=== PATIENT | male | born 1985 | race Caucasian/White ===

== ENCOUNTER 2021-01-25 10:31 | Emergency (ER) | payer OTHER ==
[2021-01-25] MEDS ORDERED: NA CHLORIDE 0.9% 1,000 ML ONE (11:35)
--- OUTSIDE RECORDS SUMMARY | 2021-01-25 11:48 | XMS REPORT | Continuity of Care Document ---
:1985 Author Organization [facility] t Address [address] Lopez [address] [place] [id number] Care Team Providers Name Role Phone Unavailable Unavailable Unavailable Problems This patient has no known problems. Allergies, Adverse Reactions, Alerts This patient has no known allergies or adverse reactions. Medications This patient has no known medications. Procedures This patient has no known procedures. Results This patient has no known results.
[2021-01-25 12:09] LABS: Absolute Lymphocytes (CBC) 0.4 K/uL (0.7-4.9); Basophils % 0.1 % (0-1.3); Hematocrit 46.5 % (39.6-49.0); Lymphocytes % 6.5 % (15.3-44.8); MPV 8.3 fL (7.6-11.3); RBC Red Blood Cell Count 5.21 M/uL (4.33-5.43)
[2021-01-25 12:13] LABS: Protime INR 1.3
[2021-01-25 12:34] LABS: ALT/SGPT 61 U/L (12-78); AST/SGOT 54 U/L (15-37); Albumin 4.6 g/dL (3.4-5.0); Alkaline Phosphatase 94 U/L (45-117); BUN Blood Urea Nitrogen 20 mg/dL (7-18); Bicarbonate 24 mmol/L (21-32); Bilirubin Direct 0.2 mg/dL (0-0.2); Bilirubin Total 0.9 mg/dL (0.2-1.0); Glucose Level 97 mg/dL (74-106); Potassium 4.5 mmol/L (3.5-5.1); Protein, Total 8.5 g/dL (6.4-8.2); Sodium Level 138 mmol/L (136-145)
--- NOTE | 2021-01-25 13:22 | ER ---
Nurse's Notes [facility] Name: Que Hester Age: 35 yrs Sex: Male : 1985 Arrival Date: 01/25/2021 Time: 10:37 Bed 17 Private MD: Diagnosis: Schizophrenia, unspecified Presentation: 01/25 10:39 Chief complaint: EMS states: FOUND DOWN BY PARENTS, DECREASED LOC VS NORMAL. UNCERTAIN bp COMPLIANCE WITH PSYCH MEDS. Coronavirus screen: At this time, the client does not indicate any symptoms associated with coronavirus-19. Ebola Screen: No symptoms or risks identified at this time. Initial Sepsis Screen: Does the patient meet any 2 criteria? HR > 90 bpm. No. Patient's initial sepsis screen is negative. Does the patient have a suspected source of infection? No. Patient's initial sepsis screen is negative. Risk Assessment: Do you want to hurt yourself or someone else? Unable to obtain. Onset of symptoms is unknown. Care prior to arrival: Medication(s) given: 5 MG VERSED IV initiated. 20 GA, in the left antecubital area. 10:39 Method Of Arrival: EMS: [facility] bp 10:39 Acuity: DONN 2 bp Triage Assessment: 10:43 General: Appears in no apparent distress. comfortable, unkempt, Behavior is bp uncooperative. Pain: Unable to use pain scale. Does not appear to understand pain scale. EENT: No deficits noted. Neuro: Level of Consciousness is awake, Oriented to none. Cardiovascular: No deficits noted. Respiratory: No deficits noted. GI: No signs and/or symptoms were reported involving the gastrointestinal system. : No signs and/or symptoms were reported regarding the genitourinary system. Derm: No deficits noted. Musculoskeletal: No deficits noted. Historical: - Allergies: 10:43 No Known Allergies; bp - Home Meds: 10:43 Unable to obtain [Active]; bp - PMHx: 10:43 Schizophrenia; bp - Immunization history:: Adult Immunizations unknown. - Social history:: Smoking status: Patient denies any tobacco usage or history of. - Family history:: not pertinent. Screenin:45 Abuse screen: Denies threats or abuse. Denies injuries from another. Nutritional bp screening: No deficits noted. Tuberculosis screening: No symptoms or risk factors identified. Fall Risk None identified. Assessment: 10:45 General: SEE TRIAGE NOTE. bp 10:51 Reassessment: Pt stated did not take medication last night, Seroquel 400 mg. Pain: vg1 Denies pain. Neuro: Level of Consciousness is awake, alert, obeys commands, Oriented to person, place, time, situation. Cardiovascular: Patient's skin is warm and dry. Respiratory: Airway Respiratory effort is even, unlabored. GI: No signs and/or symptoms were reported involving the gastrointestinal system. : No signs and/or symptoms were reported regarding the genitourinary system. EENT: No signs and/or symptoms were reported regarding the EENT system. Derm: Skin is intact, is healthy with good turgor. Musculoskeletal: Circulation, motion, and sensation intact. 11:26 Reassessment: Pt denies SI. vg1 14:15 Reassessment: Patient appears in no apparent distress at this time. No changes from vg1 previously documented assessment. Patient and/or family updated on plan of care and expected duration. Pain level reassessed. Patient is alert, oriented x 3, equal unlabored respirations, skin warm/dry/pink. Vital Signs: 10:39 BP 130 / 80; Pulse 90; Resp 16; Temp 98; Pulse Ox 100% ; bp 11:30 BP 136 / 87; Pulse 92; Resp 14; Pulse Ox 99% on R/A; vg1 ED Course: 10:37 Patient arrived in ED. vg1 10:43 Triage completed. bp 10:43 Arm band placed on. bp 10:45 Patient has correct armband on for positive identification. Bed in low position. Call bp light in reach. Side rails up X2. Adult w/ patient. 10:45 Maintain EMS IV. Dressing intact. Good blood return noted. Site clean \T\ dry. Gauge \T\ bp site: 20 GAUGE LEFT AC. 10:47 Blanquita Palomino, JORDAN is Primary Nurse. vg1 10:56 Naresh Scott MD is Attending Physician. dennis 11:26 Initial lab(s) drawn, by me, sent to lab. vg1 12:21 CT Head Brain wo Cont In Process Unspecified. EDMS 13:22 Herminio Rios MD is Referral Physician. dennis 14:15 No provider procedures requiring assistance completed. IV discontinued, intact, vg1 bleeding controlled, No redness/swelling at site. Pressure dressing applied. Administered Medications: : Drug: NS 0.9% 1000 ml Route: IV; Rate: 1 bolus; Site: left antecubital; vg1 14:15 Follow up: IV Status: Completed infusion; IV Intake: 500ml vg1 Intake: 14:15 IV: 500ml; Total: 500ml. vg1 Outcome: 13:22 Discharge ordered by MD. collins 14:15 Discharged to home ambulatory, with family. vg1 14:15 Condition: stable 14:15 Discharge instructions given to patient, family, Instructed on discharge instructions, follow up and referral plans. Demonstrated understanding of instructions, follow-up care. 14:16 Patient left the ED. vg1 Signatures: Dispatcher [employer] EDNaresh Cook MD MD cha Peltier, Brian, RN RN Blanquita Bah RN RN vg1
--- NOTE | 2021-01-25 13:22 | EDPHYS ---
Physician Documentation [facility] Name: Que Hester Age: 35 yrs Sex: Male : 1985 Arrival Date: 01/25/2021 Time: 10:37 Bed 17 Private MD: ED Physician Naresh Scott HPI: 01/25 12:23 This 35 yrs old Male presents to ER via EMS with complaints of Altered Mental dennis Status. 12:23 The patient presents with trouble concentrating. Onset: The symptoms/episode dennis began/occurred just prior to arrival, this morning. Possible causes: unknown. Associated signs and symptoms: The patient has no apparent associated signs or symptoms. Current symptoms: In the emergency department the patient's symptoms have improved, moderately. Patient's baseline: Neuro: alert and fully oriented. Historical: - Allergies: 10:43 No Known Allergies; bp - Home Meds: :43 Unable to obtain [Active]; bp - PMHx: 10:43 Schizophrenia; bp - Immunization history:: Adult Immunizations unknown. - Social history:: Smoking status: Patient denies any tobacco usage or history of. - Family history:: not pertinent. ROS: 12:23 Constitutional: Negative for fever, chills, and weight loss, Eyes: Negative for injury, dennis pain, redness, and discharge, ENT: Negative for injury, pain, and discharge, Neck: Negative for injury, pain, and swelling, Cardiovascular: Negative for chest pain, palpitations, and edema, Respiratory: Negative for shortness of breath, cough, wheezing, and pleuritic chest pain, Abdomen/GI: Negative for abdominal pain, nausea, vomiting, diarrhea, and constipation, Back: Negative for injury and pain, : Negative for injury, bleeding, discharge, and swelling, MS/Extremity: Negative for injury and deformity, Skin: Negative for injury, rash, and discoloration, Neuro: Negative for headache, weakness, numbness, tingling, and seizure, Allergy/Immunology: Negative for hives, rash, and allergies, Endocrine: Negative for neck swelling, polydipsia, polyuria, polyphagia, and marked weight changes, Hematologic/Lymphatic: Negative for swollen nodes, abnormal bleeding, and unusual bruising. 12:23 Psych: Positive for depression. Exam: 12:23 Constitutional: This is a well developed, well nourished patient who is awake, alert, dennis and in no acute distress. Head/Face: Normocephalic, atraumatic. Eyes: Pupils equal round and reactive to light, extra-ocular motions intact. Lids and lashes normal. Conjunctiva and sclera are non-icteric and not injected. Cornea within normal limits. Periorbital areas with no swelling, redness, or edema. ENT: Nares patent. No nasal discharge, no septal abnormalities noted. Tympanic membranes are normal and external auditory canals are clear. Oropharynx with no redness, swelling, or masses, exudates, or evidence of obstruction, uvula midline. Mucous membranes moist. Neck: Trachea midline, no thyromegaly or masses palpated, and no cervical lymphadenopathy. Supple, full range of motion without nuchal rigidity, or vertebral point tenderness. No Meningismus. Chest/axilla: Normal chest wall appearance and motion. Nontender with no deformity. No lesions are appreciated. Cardiovascular: Regular rate and rhythm with a normal S1 and S2. No gallops, murmurs, or rubs. Normal PMI, no JVD. No pulse deficits. Respiratory: Lungs have equal breath sounds bilaterally, clear to auscultation and percussion. No rales, rhonchi or wheezes noted. No increased work of breathing, no retractions or nasal flaring. Abdomen/GI: Soft, non-tender, with normal bowel sounds. No distension or tympany. No guarding or rebound. No evidence of tenderness throughout. Back: No spinal tenderness. No costovertebral tenderness. Full range of motion. Male : Normal genitalia with no discharge or lesions. Skin: Warm, dry with normal turgor. Normal color with no rashes, no lesions, and no evidence of cellulitis. MS/ Extremity: Pulses equal, no cyanosis. Neurovascular intact. Full, normal range of motion. Neuro: Awake and alert, GCS 15, oriented to person, place, time, and situation. Cranial nerves II-XII grossly intact. Motor strength 5/5 in all extremities. Sensory grossly intact. Cerebellar exam normal. Normal gait. Psych: Awake, alert, with orientation to person, place and time. Behavior, mood, and affect are within normal limits. 12:48 ECG was reviewed by the Attending Physician. [facility] Vital Signs: 10:39 BP 130 / 80; Pulse 90; Resp 16; Temp 98; Pulse Ox 100% ; bp 11:30 BP 136 / 87; Pulse 92; Resp 14; Pulse Ox 99% on R/A; vg1 MDM: 10:56 Patient medically screened. [facility] 12:25 Differential Diagnosis: CVA, electrolyte abnormality, alcohol intoxication, dennis hypoglycemia, overdose, volume depletion. Data reviewed: vital signs, nurses notes, lab test result(s), EKG, radiologic studies, CT scan. 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 Test interpretation: by ED physician or midlevel provider: ECG, plain radiologic studies. Counseling: I had a detailed discussion with the patient and/or guardian regarding: the historical points, exam findings, and any diagnostic results supporting the discharge/admit diagnosis, lab results, radiology results. 01/25 10:58 Order name: Acetaminophen [facility] 01/25 10:58 Order name: Basic Metabolic Panel [facility] 01/25 10:58 Order name: CBC with Diff [facility] 01/25 10:58 Order name: ETOH Level; Complete Time: 12:25 [facility] 01/25 10:58 Order name: Hepatic Function; Complete Time: 13:22 [facility] 01/25 10:58 Order name: PT-INR; Complete Time: 12:25 [facility] 01/25 10:58 Order name: Ptt, Activated; Complete Time: 12:25 [facility] 01/25 10:58 Order name: Salicylate; Complete Time: 12:25 [facility] 01/25 10:58 Order name: Acetaminophen Level; Complete Time: 13:22 EDME 01/25 10:58 Order name: Basic Metabolic Panel; Complete Time: 13:22 EDME 01/25 10:58 Order name: CBC with Automated Diff; Complete Time: 12:25 EDME 01/25 12:00 Order name: CT Head Brain wo Cont 01/25 10:58 Order name: EKG; Complete Time: 10:59 [facility] 01/25 10:58 Order name: EKG - Nurse/Tech; Complete Time: 11:26 [facility] 01/25 10:58 Order name: IV Saline Lock; Complete Time: 11:26 [facility] 01/25 10:58 Order name: Labs collected and sent; Complete Time: 11:26 [facility] 01/25 10:58 Order name: Suicide Screening ([place]); Complete Time: 11: [facility] 01/25 10:59 Order name: Seizure Precautions; Complete Time: :08 dennis EC:48 Rate is 89 beats/min. Rhythm is regular. QRS [place] is Normal. MA interval is normal. QRS dennis interval is normal. QT interval is normal. No Q waves. T waves are Normal. No ST changes noted. Clinical impression: Normal ECG and No evidence of ischemia. Interpreted by me. Reviewed by me. Administered Medications: 11:26 Drug: NS 0.9% 1000 ml Route: IV; Rate: 1 bolus; Site: left antecubital; vg1 14:15 Follow up: IV Status: Completed infusion; IV Intake: 500ml vg1 Disposition Summary: 01/25/21 13:22 Discharge Ordered Location: Home dennis Problem: new dennis Symptoms: have improved dennis Condition: Stable dennis Diagnosis - Schizophrenia, unspecified dennis Followup: dennis - With: Private Physician - When: 2 - 3 days - Reason: Recheck today's complaints, Continuance of care, Re-evaluation by your physician Followup: dennis - With: - When: 2 - 3 days - Reason: Recheck today's complaints, Continuance of care, Re-evaluation by your physician Discharge Instructions: - Discharge Summary Sheet dennis - Schizophrenia dennis - Supporting Someone With Schizophrenia dennis - Managing Schizophrenia dennis Forms: - Medication Reconciliation Form dennis - Thank You Letter dennis - Antibiotic Education dennis - Prescription Opioid Use dennis Signatures: Dispatcher [employer] Naresh Sterling MD MD cha Peltier, Brian, RN RN Blanquita Bah RN RN vg1
[2021-01-25 14:21] VITALS: TEMP 98
[2021-01-25 14:23] VITALS: BP 136/87; O2SAT 99
--- NOTE | 2021-01-25 15:02 | RAD REPORT ---
EXAM DESCRIPTION: CT - Head Brain Wo Cont - 01/25/2021 12:21 pm CLINICAL HISTORY: Unresponsive COMPARISON: None. TECHNIQUE: Axial 5 mm thick images of the head were obtained without IV contrast. All CT scans are performed using dose optimization technique as appropriate and may include automated exposure control or mA/KV adjustment according to patient size. FINDINGS: No intracranial hemorrhage, mass, edema or shift of mid-line structures. No acute infarcti on changes seen. No abnormal extra-axial fluid collections. Mastoid air cells and visualized portions of the paranasal sinuses are clear. No acute bony findings. IMPRESSION: No acute intracranial abnormality.
--- NOTE | 2021-01-26 16:14 | EKG ---
Test Date: 2021-01-25 Test Time: 11:18:19 Materials Intern: RONAK MEASUREMENT RESULTS: Intervals: Rate: 89 LA: 120 QRSD: 90 QT: 348 QTc: 423 [place]: P: 17 LA: 120 QRS: 67 T: 41 INTERPRETIVE STATEMENTS: Normal sinus rhythm Normal ECG Compared to ECG 08/05/2011 17:02:30 Sinus tachycardia no longer present ST (T wave) deviation no longer present Electronically Signed On 01-26-21 16:08:57 CDT by Avi Chaevs
== END 2021-01-25 14:16 | disposition home or self-care (01) ==
LOC: ER 10:31
DX: F20.9 Schizophrenia, unspecified (principal)
CPT/HCPCS: 96361; 93005; 85025; 80048; 36415; 80320; 80329 ×2; 85610; 80076; 85730; 70450; 96360; 99284; J7030

== ENCOUNTER 2021-01-27 11:27 | Emergency (ER) | payer OTHER ==
--- NOTE | 2021-01-27 12:26 | ER ---
Nurse's Notes [facility] Name: Que Hester Age: 35 yrs Sex: Male : 1985 Arrival Date: 01/27/2021 Time: 11:28 Bed 16 Private MD: Diagnosis: Presentation: 01/27 11:29 Chief complaint: EMS states: family and the patient wanted to come here because he tw2 wasn't compliant with his medications because he started seeing a new doctor. the family did report he took his medicine this morning. we called [facility] and they are on the way to evaluate the patient. stated there was no deputy available at the time to check on pt. Coronavirus screen: At this time, the client does not indicate any symptoms associated with coronavirus-19. Ebola Screen: Patient denies travel to an Ebola-affected area in the 21 days before illness onset. Initial Sepsis Screen: Does the patient meet any 2 criteria? No. Patient's initial sepsis screen is negative. Does the patient have a suspected source of infection? No. Patient's initial sepsis screen is negative. Risk Assessment: Do you want to hurt yourself or someone else? Patient reports no desire to harm self or others. Note pt refusing to wait in exam room at this time. [facility] talking to pt at this time. Onset of symptoms was January 27, 2021. 11:29 Method Of Arrival: EMS: [facility] tw2 11:29 Acuity: DONN 2 tw2 11:50 Note pt standing in hallway with JOANA, charge nurse JORDAN Morley and [facility]. pts father tw2 just arrived in hallway to talk to pt at this time. pt still unwilling to go into ER examination room. Assessment: 11:33 Reassessment: pt walking out of ER at this time. tw2 11:35 Reassessment: pt refusing to be exam room, vs, and is walking out to leave the ER. tw2 [facility] talking to pt. security notified. 12:12 Reassessment: pt standing in hallway, refusing to sit in exam room and refusing blood tw2 work at this time, pts father unable to get pt into the exam room at this time. security at bedside at this time. 12:24 Reassessment: pts father left with pt at this time. tw2 ED Course: 11:28 Patient arrived in ED. tw2 11:33 Triage completed. tw2 11:47 Monster Barreto PA is PHCP. [facility] 11:48 Oscar Jasso MD is Attending Physician. [facility] 12:12 Ani Trevizo, RN is Primary Nurse. tw2 Administered Medications: No medications were administered Outcome: 12:25 Patient left the ED. tw2 Signatures: Monster Barreto PA PA [facility] Ani Trevizo, RN RN tw2
--- OUTSIDE RECORDS SUMMARY | 2021-01-27 15:27 | XMS REPORT | Continuity of Care Document ---
:1985 Author Organization [facility] t Address [address] [place] [address] Dr. Lopez [address] [place] [id number] Care Team Providers Name Role Phone Unavailable Unavailable Unavailable Problems This patient has no known problems. Allergies, Adverse Reactions, Alerts This patient has no known allergies or adverse reactions. Medications This patient has no known medications. Procedures This patient has no known procedures. Results This patient has no known results.
--- NOTE | 2021-01-28 12:25 | EDPHYS ---
Physician Documentation [facility] Name: Que Hester Age: 35 yrs Sex: Male : 1985 Arrival Date: 01/27/2021 Time: 11:28 Bed 16 Private MD: ED Physician Oscar Jasso HPI: 01/27 12:02 This 35 yrs old Male presents to ER via EMS with complaints of Mental Health [facility] Checkup. 12:02 This is a 35 year old male with a history of schizophrenia that presents to the ED in a [facility] non verbal state since d/c his medications. Father states the patient is normally verbal and communicates normally. Patient arrived via ems. . ROS: 12:02 Unable to obtain ROS due to patient being uncooperative. [facility] Exam: 12:02 Head/Face: atraumatic. Eyes: EOMI, no conjunctival erythema appreciated ENT: Moist [facility] Mucus Membranes Neck: Trachea midline, Supple Chest/axilla: Normal chest wall appearance and motion. Cardiovascular: Regular rate and rhythm. No edema appreciated Respiratory: Normal respirations, no respiratory distress appreciated Abdomen/GI: Non distended, soft Back: Normal ROM Skin: General appearance color normal 12:02 Constitutional: The patient appears awake. 12:02 Musculoskeletal/extremity: ROM: intact in all extremities. 12:02 Skin: Appearance: Color: normal in color. 12:02 Psych: Behavior/mood is uncooperative. MDM: 12:02 Patient medically screened. [facility] 12:02 Data reviewed:. ED course: patient eloped from the ED with father. [facility] 01/27 12:02 Order name: EKG; Complete Time: 12:02 [facility] 01/27 12:02 Order name: EKG - Nurse/Tech [facility] 01/27 12:02 Order name: IV Saline Lock [facility] 01/27 12:02 Order name: Labs collected and sent [facility] 01/27 12:02 Order name: Suicide Screening ([place]) [facility] 01/27 12:02 Order name: Urine Dipstick-Ancillary (obtain specimen) [facility] Administered Medications: No medications were administered Disposition: 17:12 Co-signature as Attending Physician, Oscar Jasso MD I agree with the assessment and kdr plan of care. Disposition Summary: 01/27/21 12:25 Left Against Medical Advice Location: Home tw2 Condition: Undetermined tw2 Signatures: Dispatcher [employer] Oscar Arvizu MD MD kdr Mickail, Joel, PA PA jmm Wise, Tara, RN RN tw2
== END 2021-01-27 12:25 | disposition left against medical advice (07) ==
LOC: ER 11:27
DX: F20.9 Schizophrenia, unspecified (principal)
CPT/HCPCS: 99282